=== PATIENT | male | born 1965 | race Caucasian/White ===

== ENCOUNTER 2020-04-01 10:26 | Inpatient (IN) | payer OTHER ==
[2020-04-01] VITALS (17 sets, daily range): BP systolic 102–126; BP diastolic 54–78; BMI 28.8
[~2020-04-01] VITALS: Ht 170.2 cm; Wt 80.5 kg
--- NOTE | 2020-04-01 13:00 | NUR ---
Arrived to unit at 1250 via EMS. On room air. Denies pain. bp 122/69, hr 96, RR 16, O2 SAT 96%, Temp 98.2. PIV to right forearm and left hand saline loc. Connected to ICU monitors. Dr. Méndez's nurse notified of pt arrival. Will continue to monitor.
[2020-04-01] MEDS ORDERED: ELAVIL75 MG PO (13:43)
[2020-04-01] MEDS ORDERED: IBUPROFEN800 MG PO (13:44)
[2020-04-01] MEDS ORDERED: GLUCOPHAGE850 MG PO (13:45)
[2020-04-01] MEDS ORDERED: GLIPIZIDE10 MG PO (13:46)
[2020-04-01] MEDS ORDERED: FENOFIBRATE160 MG PO (13:47)
[2020-04-01] MEDS ORDERED: BAYER CHEWABLE81 MG PO (13:48)
[2020-04-01] MEDS ORDERED: LISINOPRIL10 MG PO (13:48)
[2020-04-01] MEDS ORDERED: AMITRIPTYLINE H50 MG PO (13:49)
[2020-04-01] MEDS ORDERED: FLOMAX0.4 MG PO (13:50)
[2020-04-01 14:24] LABS: BASOPHILS 0.2 % (0-2); EOSINOPHILS 5.1 % (0-7); HEMATOCRIT 35.9 % (42.0-54.0); HEMOGLOBIN 12.1 g/dL (13.5-17.5); IMMATURE GRANULOCYTES 1.3 % (0-5); LYMPHOCYTES 26.1 % (15-50); MCH 33.6 pg (26.0-34.0); MCHC 33.7 g/dL (31.0-37.0); MCV 99.7 fL (80.0-100.0); MEAN PLATELET VOLUME 9.7 fL (7.4-10.4); MONOCYTES 5.1 % (2-11); NEUTROPHILS 62.2 % (40-80); PLATELET COUNT 168 10x3/uL (130-400); RDW 13.7 % (11.5-14.5); WBC 5.3 10x3/uL (4.8-10.8)
[2020-04-01] MEDS ORDERED: TORADOL10 MG PO (14:27)
[2020-04-01] MEDS ORDERED: LISINOPRIL5 MG PO (14:28)
[2020-04-01 14:54] LABS: APTT 29.7 SECONDS (22.8-39.4); INR 0.98 (0.85-1.17); PROTIME 12.9 SECONDS (11.6-15.0)
[2020-04-01 15:11] LABS: BILIRUBIN NEGATIVE (NEGATIVE); KETONE NEGATIVE (NEGATIVE); NITRITE NEGATIVE (NEGATIVE); UROBILINOGEN NORMAL (NORMAL)
[2020-04-01 15:13] LABS: ALBUMIN 3.4 g/dL (3.4-5.0); ANION GAP 12.3 mmol/L (8-16); BILIRUBIN - TOTAL 0.26 mg/dL (0.2-1.3); CALCIUM 8.3 mg/dL (8.5-10.1); CARBON DIOXIDE 24.5 mmol/L (21.0-32.0); CREATININE - SERUM 1.2 mg/dL (0.6-1.3); PHOSPHOROUS 2.9 mg/dL (2.5-4.9); POTASSIUM - SERUM 3.8 mmol/L (3.5-5.1); PROTEIN - SERUM 7.1 g/dL (6.4-8.2); T4 THYROXIN - FREE 0.98 ng/dL (0.76-1.46); THYROID STIMULATING HORMONE 3.37 uIU/mL (0.36-3.74); URIC ACID 5.2 mg/dL (2.6-7.2)
--- NOTE | 2020-04-01 17:20 | NUR ---
Dr. Goodson in unit. Nofitied of consult.
--- NOTE | 2020-04-01 17:45 | NUR ---
Blood glucose [address] Méndez notified. Orders received.
--- NOTE | 2020-04-01 21:00 | NUR ---
PTT 34.0, HEPARIN PROTOCOL FOLLOWED PER ORDER.
[2020-04-02] VITALS (29 sets, daily range): BP systolic 98–164; BP diastolic 47–70; Ht 170.2 cm; Wt 80.5 kg
[2020-04-02 05:57] LABS: BASOPHILS 0.4 % (0-2); EOSINOPHILS 4.5 % (0-7); HEMATOCRIT 36.5 % (42.0-54.0); IMMATURE GRANULOCYTES 1.3 % (0-5); LYMPHOCYTES 30.2 % (15-50); MCHC 32.9 g/dL (31.0-37.0); MCV 100.3 fL (80.0-100.0); MEAN PLATELET VOLUME 9.9 fL (7.4-10.4); MONOCYTES 7.3 % (2-11); NEUTROPHILS 56.3 % (40-80); PLATELET COUNT 166 10x3/uL (130-400); RBC 3.64 10x6/uL (4.20-6.10); RDW 13.6 % (11.5-14.5); WBC 5.6 10x3/uL (4.8-10.8)
[2020-04-02 06:16] LABS: ANION GAP 15.7 mmol/L (8-16); CALCIUM 8.4 mg/dL (8.5-10.1); CREATININE - SERUM 1.3 mg/dL (0.6-1.3); POTASSIUM - SERUM 3.7 mmol/L (3.5-5.1)
--- NOTE | 2020-04-02 09:38 | NUR ---
Resting comfortably. He states that he's nervous about being in restraints after surgery. He states that in the past he has gotten very agitated when placed in restraints and is afraid that he will become combative if he finds himself strapped to the bed. Sister is at bedside. She is a nurse. Explained to pt what to expect after surgery, but he is still very nervous.
--- NOTE | 2020-04-02 09:52 | NUR ---
Ultrasound staff notified of need os dopplar ultrasound ordered.
--- NOTE | 2020-04-02 11:34 | NUR ---
Resting comfortably. VSS. Denies other needs at this time.
--- NOTE | 2020-04-02 12:32 | NUR ---
Preop meds given at this time. Sister at bedside. Sister's phone number given to Christianne Ramesh.
--- NOTE | 2020-04-02 13:20 | NUR ---
Pt not in room at this time.
[2020-04-03] VITALS (87 sets, daily range): BP systolic 42–134; BP diastolic 25–88
--- NOTE | 2020-04-03 01:07 | NUR ---
PATIENT EXTUBATED PER ORDER TO 02 @4L/MIN PER NC. FAUSTINO WELL. VSS
[2020-04-03 05:26] LABS: HEMOGLOBIN 10.8 g/dL (13.5-17.5); MCH 33.1 pg (26.0-34.0); MCHC 32.7 g/dL (31.0-37.0); MCV 101.2 fL (80.0-100.0); MEAN PLATELET VOLUME 9.7 fL (7.4-10.4); RBC 3.26 10x6/uL (4.20-6.10); RDW 14.2 % (11.5-14.5); WBC 8.8 10x3/uL (4.8-10.8)
[2020-04-03 05:53] LABS: ALBUMIN 2.7 g/dL (3.4-5.0); BILIRUBIN - TOTAL 0.35 mg/dL (0.2-1.3); CALCIUM 7.4 mg/dL (8.5-10.1); CREATININE - SERUM 1.6 mg/dL (0.6-1.3)
[2020-04-03 05:58] LABS: ANION GAP 14.3 mmol/L (8-16); POTASSIUM - SERUM 4.3 mmol/L (3.5-5.1)
--- NOTE | 2020-04-03 19:00 | NUR ---
REPORT RECEIVED. RECEIVED PATIENT IN BED, AWAKE ALERT AND ORIENTED X 4. ASSESSMENT COMPLETED PER FLOW SHEET WITH NO ACUTE DISTRESS OBSERVED. MONITOR CONNECTED TO PATIENT WITH ALARMS SET. VSS. ON SHANTHI GTT TITRATED TO EFFECT. NSR ON MONITOR. MEDIASTINAL CT INTACT/SECURE/PATENT CONNECTED TO 20CM WALL SUCTION DRAINING SMALL AMOUNT OF SEROSANG FLUID INTO COLLECTION CHAMBER. GRZEGORZ DRAIN INTACT/SECURE/PATENT AND COMPRESSED WITH SMALL AMOUNT OF SEROSANG FLUID IN BULB. CALL LIGHT IN REACH AND ABLE TO UTILIZE TO MAKE NEEDS KNOWN. WILL CONTINUE CURRENT POC
--- NOTE | 2020-04-03 20:00 | NUR ---
0745-NOTED FEDE FLAT WAVE FORM-DRESSING TAKEN DOWN-SUTURE NOT SECURE-CATHETER NOT IN PLACE-REMOVED PER PROTOCOL-NO DRAINAGE OR HEMATOMA NOTE-PRESSURE DRG APPLIED 0830-PT VOMITED 250ML-POSSIBLY WITH FORCEFUL COUGH--DR MCNEAL AT BEDSIDE-CURRENT STATUS REPORT -NO ADDITIONAL ORDERS AT THIS TIME 0945-REGLAN GIVEN ORDERED 1200-NOTIFIED DR MCNEAL OF UOP< THEN ORDERED PARAMETER-ORDER RECIEVED AND PLASMA FLUID BOLUS OF 500ML STARTED OVER 1 HR 1330-FOUND PT ON SIDE-STRESSED WILL CAUSE STRONGER PAIN -DUE TO STERNAL BONE FORCED OUT OF POSITION-AND NOT GOOD FOR RESIDENTIAL RESULTS-PT REPOSITIONED SELF TO BACK- 1450-FOUND PT ON SIDE WITH REPEAT INSTRUCTION-STATED HE FORGOT-ASKED IF DOESN'T CAUSE INCREASED PAIN -PT STATED HELPS RELIEVE PAIN-EASILY RETURNED TO SUPINE 1630-PT POORLY USING IS-INCREASED RHONCHI AUDIBLE -ASSISTED TO BEDSIDE CHAIR-ABLE TO STAND WELL- INCENTIVE IMPROVED TO 750ML-PRODUCTIVE COUGH -NEPHEW AT BEDSIDE-CONVERSING EASILY WITH SAME 1700-DR MCNEAL NOTIFIED OF CURRENT STATUS-UOP RETURNED TO BELOW PARAMETER-CURRENT VS AND NEOSYNEPHRINE AT 0.9 -ABG ORDERED AND DRAWN 1715-ABG RESULTS GIVEN TO DR MCNEAL-ORDER FOR CACL 2G OVER 1 HR IVPB-PT ASSISTED TO BED- 1800-PRODUCTIVE COUGH-
[2020-04-04] VITALS (35 sets, daily range): BP systolic 93–132; BP diastolic 38–87
[2020-04-04 06:01] LABS: HEMATOCRIT 26.5 % (42.0-54.0); HEMOGLOBIN 8.5 g/dL (13.5-17.5); MCH 33.1 pg (26.0-34.0); MCHC 32.1 g/dL (31.0-37.0); MCV 103.1 fL (80.0-100.0); RBC 2.57 10x6/uL (4.20-6.10); RDW 14.5 % (11.5-14.5); WBC 6.9 10x3/uL (4.8-10.8)
[2020-04-04 06:09] LABS: ALBUMIN 2.7 g/dL (3.4-5.0); ANION GAP 18.1 mmol/L (8-16); BILIRUBIN - TOTAL 1.03 mg/dL (0.2-1.3); CALCIUM 8.5 mg/dL (8.5-10.1); CARBON DIOXIDE 21.8 mmol/L (21.0-32.0); POTASSIUM - SERUM 4.9 mmol/L (3.5-5.1); PROTEIN - SERUM 6.3 g/dL (6.4-8.2)
--- NOTE | 2020-04-04 18:17 | NUR ---
0830-DR MCNEAL IN UNIT REVIEWING PT CHART 899-PT ASSISTED TO BEDSIDE CHAIR-WITH AID OF RN AND PHYSICAL THERAPY. STRONGLY ENCOURAGED [id number] ML-STRONG PRODUCTIVE COUGH 899-SISTER AT BEDSIDE -INFORMED STAFF PT HAS BEEN VOMITING AT HOME FOR APPROX 3 MTHS-PT DID NOT INFORM MEDICAL TEAM PRIOR-STATED FELT NOT IMPORTANT-ABD DISTENDED FIRM NO BOWEL SOUNDS AUDIBLE 929-DR MCNEAL AT BEDSIDE-CHEST TUBES REMOVED BY SAME PER PROTOCOL-R IJ SALINE LOCKED-R JPRATT REMOVED BY CVRN -TOLERATED WELL-DR AGUERO AT BEDSIDE INFORMED OF FREQUENT VOMITING AND DISTENDED ABD NO BOWEL SOUNDS AUDIBLE-- 1000-XRAY FILM REVIEWED-BY DR MCNEAL AND ORDERS RECIEVED 1300-PT STATED VOMITING AND NAUSEA PASSED-ABD REMAINS DISTENDED-NO AUDIBLE BOWEL SOUNDS AT THIS TIME-REQUESTED ASSISTANCE TO BEDSIDE CHAIR 1500-OXIMYZER INCREASED TO 15L PT AMBULATED WITH PHYSICAL THERAPY-ASSISTED TO BED FOLLOWING-REQUESTED CATHETER OUT-SAME D/C'D PER PROTOCOL
--- NOTE | 2020-04-04 18:31 | NUR ---
1730-PT CALLED NURSE INTO RM-NOTED NOSE BLEED -OXIMYZER ON HUMIDIFICATION-PT STATED TUBING SCRATCHED HIS NOSE-ICE APPLIED 1800-PT CALLED AND REQUESTED ASSISTANCE TO BED-SAME DONE-
--- NOTE | 2020-04-04 20:05 | NUR ---
184-NNOTED SINUS ARRYTHMIA-78-/BLOCKED SINUS HFOLL-[id number] MONITOR STRIPS-ENTERED ROOM-RESP RATE 8-10-O2 UNDER [id number] CYANOSIS-STRONGLY ALERTED PT-RESPONDED SLUGGISHLY-O2 REPLACED-PT STATED DIDN'T KNOW O2 OFF--POOR RESP EFFORT-BAGGED 100%-SAT INCREASED TO 100%-NARCAN 0.1 IVP GIVEN AND FLUSHED-HEART RATE RETURNED OT N/S 99 WITH BUNDLE BRANCH BLOCK-CONTINUED BAGGING 100%-WITH NO STRUGGLE FROM PT-1847-PT ALERT AND STRUGGLED AGAINST BAGGING-OXIMYZER 15L-PT CRYING OUT IN PAIN-SR 99 ON MONITOR -STAT ABG ORDERED-DR MCNEAL NOTIFIED-ABG RESULTS SENT-ORDERS RECIEVED AND NOTED-BICARB 1AMP IVP GIVEN-DR VIDALES PAGED FOR STAT CONSULT-PT PLACED ON NON REBREATHER BY RT 1849-DR VIDALES RETURNED CALL-STATUS REPORT GIVEN-ORDERS RECIEVED -STAT PORT CXR-RT NOTIFIED OF 09/02 100%BIPAP- 1914-CXR COMPLETED-DR VIDALES AT BEDSIDE O2 OFF'-POOR RESP EFFORT-BAGGED 100%
[2020-04-05 04:00] VITALS: BP 130/87
[2020-04-05 05:36] LABS: HEMATOCRIT 26.1 % (42.0-54.0); HEMOGLOBIN 8.1 g/dL (13.5-17.5); MCH 32.8 pg (26.0-34.0); MEAN PLATELET VOLUME 10.1 fL (7.4-10.4); RBC 2.47 10x6/uL (4.20-6.10); RDW 14.5 % (11.5-14.5); WBC 6.9 10x3/uL (4.8-10.8)
[2020-04-05 05:59] LABS: ALBUMIN 2.7 g/dL (3.4-5.0); ANION GAP 19.7 mmol/L (8-16); BILIRUBIN - TOTAL 0.7 mg/dL (0.2-1.3); CALCIUM 8.1 mg/dL (8.5-10.1); CARBON DIOXIDE 22.8 mmol/L (21.0-32.0); CREATININE - SERUM 2.1 mg/dL (0.6-1.3); POTASSIUM - SERUM 5.5 mmol/L (3.5-5.1); PROTEIN - SERUM 6.9 g/dL (6.4-8.2)
[2020-04-05 06:08] LABS: MCV 105.7 fL (80.0-100.0)
--- NOTE | 2020-04-05 08:42 | NUR ---
Nutrition Follow-up: POD 3 CABG. Pt on bipap at time of visit this AM. Noted 0% intake over the weekend. Nursing reports pt desats when off of bipap. Diet: Clear Liquid -> Diabetic PO intake: 0% x 6 meals Wt: 196# (04/05) Labs noted: Na 132, K+ 5.5, Glu 200, Ca 8.1, Alb 2.7 Meds noted: Solumedrol, Reglan, Protonix, Senokot, Colace -If poor PO intake continues, rec consider nutrition support. -Monitor wt. -RD following.
--- NOTE | 2020-04-05 10:40 | NUR ---
patient ambulated on 15 l high flow with physical therapy
[2020-04-05 11:00] VITALS: BP 121/52
--- NOTE | 2020-04-05 12:13 | NUR ---
INSTRUCTED PATIENT TO COUGH AND PUT SPUTUM IN SPECIMEN CUP.
[2020-04-05 19:00] VITALS: BP 125/58
[2020-04-05 20:00] VITALS: BP 110/38
[2020-04-05 21:00] VITALS: BP 120/53
[2020-04-05 22:00] VITALS: BP 102/36
[2020-04-06] VITALS (25 sets, daily range): BP systolic 103–143; BP diastolic 37–85
[2020-04-06 06:01] LABS: HEMATOCRIT 25.2 % (42.0-54.0); HEMOGLOBIN 8.1 g/dL (13.5-17.5); MCH 32.9 pg (26.0-34.0); MCHC 32.1 g/dL (31.0-37.0); MEAN PLATELET VOLUME 10.3 fL (7.4-10.4); RBC 2.46 10x6/uL (4.20-6.10); RDW 14.3 % (11.5-14.5)
[2020-04-06 06:02] LABS: MCV 102.4 fL (80.0-100.0); WBC 9.2 10x3/uL (4.8-10.8)
[2020-04-06 06:21] LABS: ALBUMIN 2.6 g/dL (3.4-5.0); BILIRUBIN - TOTAL 0.97 mg/dL (0.2-1.3); CALCIUM 7.8 mg/dL (8.5-10.1); CARBON DIOXIDE 28.4 mmol/L (21.0-32.0); PROTEIN - SERUM 6.8 g/dL (6.4-8.2)
[2020-04-06 06:44] LABS: CREATININE - SERUM 1.5 mg/dL (0.6-1.3); POTASSIUM - SERUM 4.4 mmol/L (3.5-5.1)
--- NOTE | 2020-04-06 08:54 | OP ---
PATIENT NAME: ORLY CONWAY MEDICAL RECORD: [id number] :65 LOCATION:D.CVI D.CV05 ADMISSION DATE:04/01/20 SURGEON: EDILMA BEGUM MD DATE OF OPERATION: 04/02/2020 SURGEON: Edilma Begum MD PROCEDURE PERFORMED: 1. Coronary artery bypass graft times 3 (left internal mammary artery to LAD, reverse saphenous vein graft from aorta to first ramus intermedius and aorta to posterior descending artery). 2. Endoscopic saphenous vein harvest. PREOPERATIVE DIAGNOSES: Coronary artery disease with myocardial infarction and ventricular tachycardia. POSTOPERATIVE DIAGNOSIS: Coronary artery disease with myocardial infarction and ventricular tachycardia. ANESTHESIA: General endotracheal anesthesia. ESTIMATED BLOOD LOSS: Total cardiopulmonary bypass with Cell Saver retransfusion. COMPLICATIONS: None. SPECIMENS: None. CONDITION: Stable. DISPOSITION: CV ICU. OPERATIVE FINDINGS: 1. Transesophageal echocardiography revealed good global contractility with trace mitral regurgitation and trace aortic insufficiency, unchanged after revascularization. 2. Bilateral hyperexpanded and hyperpigmented longus consistent with long history of smoking. 3. LAD 2.5 mm. 4. Ramus intermedius 2.0 mm. 5. Obtuse marginal seen to fill by collaterals was very small and not grafted. 6. Posterior descending artery 1.5 mm with severe disease plaque in the proximal vessel as well as distal. OPERATIVE INDICATION: Myocardial infarction, ventricular tachycardia, multivessel coronary artery disease, diabetes, smoking, and hyperlipidemia family history. DESCRIPTION OF PROCEDURE: The patient was brought to the operating suite. General anesthesia was obtained, the patient was prepped and draped. Greater saphenous vein harvested endoscopically of the right lower extremity. Side branch divided with electrocautery. The vessel was ligated distally proximally. The proximal end required a cut down, ligated and oversewn. Drain was placed later. Side branches on the vein were tied and thin sites were oversewn. Leg was later closed in 2 layers and Dermabond was placed. OPERATIVE REPORT [id number] ORLY CONWAY Median sternotomy incision was made. Subcutaneous tissue divided with electrocautery. The sternum was divided with a saw. The left hemisternum was elevated. The left pleural cavity was entered. Left internal mammary artery and vein was taken down as a pedicle graft. Sternal retractor was placed. Pericardium was opened. Heparin was given. Air was cannulated. Dual stage venous cannula was inserted. The internal mammary was clipped distally and made ready for anastomosis. Activated clotting time was appropriately elevated. The patient was placed on cardiopulmonary bypass. Sites for distal anastomoses were selected. Antegrade cardioplegic cannula was inserted. The patient was cooled. Crossclamp was placed. Cardioplegia given antegrade and this repeated at 15 minute intervals including down the completed vein grafts. Distal anastomosis was performed in standard technique. Proximal anastomosis with single cross-clamp technique. Aortic root de-aired. Proximal anastomosis tied down. Vein graft flow restored. Proximal and distal anastomotic sites inspected for bleeding. A single 6-0 at the proximal site. The patient defibrillated once. Amiodarone given. Patient with a fully rewarmed, stable, weaned from cardiopulmonary bypass. The patient was decannulated. The cannula sites were oversewn. Protamine was given. Thorough irrigation was undertaken. Graft lay appropriately. Good Doppler signal in the internal mammary. Atrial and ventricular pacing wires were placed. After hemostasis was assured, pericardial fat was loosely reapproximated with drain to the mediastinum, one with the tip in the right pleural cavity, one in the left pleural cavity. Left chest was evacuated and irrigated. The internal mammary harvest site inspected for bleeding. Sternum closed with wires. Fascia was closed. Subcutaneous tissues were closed. Skin was closed. Dermabond was placed. The needle and sponge counts reported as correct. The patient was taken to ICU in stable condition. TRANSINT:[id number] Voice Confirmation ID: [id number] DOCUMENT ID: [id number] EDILMA BEGUM MD at 0854 CC: TALISHA AVALOS MD [id number] DICTATION DATE: 04/02/201899 JAVA ARCHITECT: 04/03/20 0025 ADM IN [facility] [address] [place] [address]
[2020-04-06 12:50] LABS: BASOPHILS 0.2 % (0-2); EOSINOPHILS 0 % (0-7); HEMATOCRIT 26.4 % (42.0-54.0); HEMOGLOBIN 8.6 g/dL (13.5-17.5); LYMPHOCYTES 5.8 % (15-50); MCH 33.6 pg (26.0-34.0); MCHC 32.6 g/dL (31.0-37.0); MCV 103.1 fL (80.0-100.0); MEAN PLATELET VOLUME 10.3 fL (7.4-10.4); MONOCYTES 7.1 % (2-11); NEUTROPHILS 85.9 % (40-80); PLATELET COUNT 209 10x3/uL (130-400); RBC 2.56 10x6/uL (4.20-6.10); RDW 14.6 % (11.5-14.5)
--- NOTE | 2020-04-06 13:14 | NUR ---
RECEIVED REPORT AND ASSUMED CARE OF PATIENT.
[2020-04-06 13:23] LABS: ALBUMIN 2.7 g/dL (3.4-5.0); BILIRUBIN - TOTAL 0.87 mg/dL (0.2-1.3); CALCIUM 7.9 mg/dL (8.5-10.1); CARBON DIOXIDE 26.6 mmol/L (21.0-32.0); CREATININE - SERUM 1.4 mg/dL (0.6-1.3); POTASSIUM - SERUM 4.6 mmol/L (3.5-5.1); PROTEIN - SERUM 6.3 g/dL (6.4-8.2)
[2020-04-06 13:38] LABS: WBC 12.3 10x3/uL (4.8-10.8)
--- NOTE | 2020-04-06 14:05 | NUR ---
DECREASED 02 TO 6 LPM, SPO2 100%.
--- NOTE | 2020-04-06 14:22 | NUR ---
PATIENT ASSISTED TO BEDSIDE COMMODE, NO BM, VOIDS 100 ML OF URINE.
--- NOTE | 2020-04-06 14:27 | NUR ---
O2 DECREASED TO 2 LPM, SPO2 100%.
--- NOTE | 2020-04-06 15:12 | NUR ---
REASSESSMENT COMPLETRED. VSS. NO NEEDS AT THIS TIME.
--- NOTE | 2020-04-06 15:46 | NUR ---
PATIENT PULLED NGT OUT.
--- NOTE | 2020-04-06 16:00 | NUR ---
DR. JETER AT ROOM UPDATED AND EXAMINES PATIENT.
--- NOTE | 2020-04-06 16:02 | NUR ---
NGT PLACED TO RIGHT NARE 14 FR, PLACEMENT VERIFIED BY ASCULATION AND ASPIRATION PLACED TO INTERMETTENT SUCTION. CVL TO RIGHT IJ NOTED TO BE LEAKING AROUND INSERTION SITE, PATIENTS GOWN SOAKED, MARLENI RN STATED THAT SHE HAD REDRESSED THE SITE THIS AM BUT WASNT SURE WHERE IT WAS LEAKING FROM. IV INFUSION STOPPED AND NOTIFIED.
--- NOTE | 2020-04-06 16:20 | NUR ---
DISTAL PORT WITH POSITIVE BLOOD RETURN AND EASILY FLUSHES, PROXIMAL PORT WITHOUT BLOOD RETURN AND FLUSHES EASILY, DRESSING CHANGED AND IV FLUID RESTARTED USING DISTAL PORT. WILL CONTINUE TO MONITOR NO SIGNS OF LEAKING PRESENTLY.
--- NOTE | 2020-04-06 16:47 | NUR ---
AFTER CHANGING DRESSING AND CONNECTION SITE NO LEAK NOTED. WILL CONTINUE TO MONITOR.
[2020-04-07] VITALS (25 sets, daily range): BP systolic 83–149; BP diastolic 39–74
[2020-04-07 05:27] LABS: ALBUMIN 2.5 g/dL (3.4-5.0); ANION GAP 14.3 mmol/L (8-16); BILIRUBIN - TOTAL 0.83 mg/dL (0.2-1.3); CALCIUM 8.2 mg/dL (8.5-10.1); CARBON DIOXIDE 27.5 mmol/L (21.0-32.0); CREATININE - SERUM 1.1 mg/dL (0.6-1.3); POTASSIUM - SERUM 4.8 mmol/L (3.5-5.1); PROTEIN - SERUM 6.7 g/dL (6.4-8.2)
[2020-04-07 05:46] LABS: APTT 27.4 SECONDS (22.8-39.4); INR 1.25 (0.85-1.17); PROTIME 15.6 SECONDS (11.6-15.0)
--- NOTE | 2020-04-07 07:30 | NUR ---
RECEIVED REPORT FROM OFF-GOING NURSE. ALL LINE AND TUBES INTACT AT THIS TIME. PATIENT QUIET WITH EYES CLOSED.
[2020-04-07 07:52] LABS: HEMATOCRIT 26.8 % (42.0-54.0); HEMOGLOBIN 8.5 g/dL (13.5-17.5); MCH 32.7 pg (26.0-34.0); MCHC 31.7 g/dL (31.0-37.0); MCV 103.1 fL (80.0-100.0); MEAN PLATELET VOLUME 10.7 fL (7.4-10.4); RBC 2.6 10x6/uL (4.20-6.10); RDW 14.7 % (11.5-14.5); WBC 10.1 10x3/uL (4.8-10.8)
--- NOTE | 2020-04-07 08:00 | NUR ---
SHIFT ASSESSMENT COMPLETED. PATIENT AROUSABLE TO VOICE, SPEECH SLURRED. CAN GIVE FIRST NAME BUT DOES NOT RESPOND TO OTHER QUESTIONS.
--- NOTE | 2020-04-07 08:20 | NUR ---
PATIENT CLIMBING OUT OF BED AT FOOT. INCONTINENT OF URINE IN BED AND ON FLOOR. COMBATIVE AND RESISTENT TO PHYSICAL REDIRECTION. LINENS CHANGED AND REPOSITIONED IN BED. BED ALARM INITIATED.
--- NOTE | 2020-04-07 08:22 | CN ---
PATIENT NAME:ORLY CONWAY MEDICAL RECORD: [id number] : 65 LOCATION:RALPHID.CV05 ADMIT DATE: 04/01/20 ACCOUNT: [id number] CONSULTING PHYSICIAN: FENG JETER MD REFERRING PHYSICIAN: EDILMA BEUGM MD DATE OF CONSULTATION: 04/06/2020 IDENTIFYING DATA: The patient is 55-year-old and he is admitted to the hospital secondary to coronary artery disease. CHIEF COMPLAINT: None. HISTORY OF PRESENT ILLNESS: The patient recently had a myocardial infarction. He was transferred here from [facility] for the purposes of having bypass grafting and indeed he did have multivessel disease and underwent surgery 4 days ago. Currently, he has some abnormal labs, macrocytic anemia and elevated white count and elevated BUN and creatinine and a low sodium. The patient himself is alert, oriented, and cooperative. He has no mental status abnormalities except some slowed cognitive processing and certainly no thoughts of harming himself or others. He strongly denies a history of alcohol and drug abuse. He denies any psychiatric issues in the past. 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 ASSESSMENT: Adjustment disorder with mixed emotional features. PLAN: I see no behavior problems and certainly no evidence of any symptoms that would represent an acute danger to others or himself. I see no need for psychiatric followup. It is hard to assess what his mental status change might be not having the opportunity to examine him before surgery. I do think he is processing slow and taking longer to recall than would be expected of someone of normal intelligence, but I do not know what his baseline level of functioning was intellectually. Again, there is no evidence of dangerousness. I he does have some insomnia or anxiety, I think it is appropriate to treat with a low dose of benzodiazepine on short-term basis. I suspect some of his anxiety is not only related to his social situation and sudden change in health, but also to the fact that he is not able to smoke. Hopefully, he will quit smoking; however, a Habitrol patch may help calm him some, but I am not sure about how that would influence his cardiac status. TRANSINT:[id number] Voice Confirmation ID: [id number] DOCUMENT ID: [id number] FENG JETER MD at 0822 CC: [id number] DICTATION DATE: 04/06/20 1641 SPINNING DOFFER: 04/07/[address] [facility] [address] [place] [id number]
--- NOTE | 2020-04-07 09:11 | TEE ---
PATIENT:ORLY CONWAY MEDICAL RECORD: [id number] LOCATION:[place] [address] AGE OF PATIENT: 55 ADMISSION DATE: 04/01/20 SEX: M REFERRING PHYSICIAN: INTERPRETING PHYSICIAN: CARROL DIMAS MD TRANSESOPHAGEAL ECHOCARDIOGRAM Date: 04/06/20 ODILON CHARGE Y INDICATIONS: CABG PREMEDICATIONS: PATIENT'S RESPONSE PROCEDURE DOPPLER MEASUREMENTS: LVIT LA PA 93 RA LVOT 95 RVOT 54 Asc. Ao 172 AV Gradient Peak 11.8 AV Mean 5.0 AV Area 0.8 MV Gradient Peak 9.4 MV Mean 4.0 MV Area INTERPRETATION: Doppler: 2-D: COLOR FLOW DOPPLER NORMAL SALINE STUDY: MISCELLANOUS: DIAGNOSIS: PLAN: Internet Marketing Executive:Johnathon Conway Computer Networker: Kendall FALCON COMMENTS: DATE OF SERVICE: 04/06/2020 Preoperative shows normal LV wall motion and normal wall thickening. EF greater than 55%. Aortic valve is tricuspid with good valve excursion. Trace to mild AI. Mitral valve appears normal with good excursion. Mild MR. Postoperatively, good wall thickening of all segments and good wall motion, EF greater than 50%. Aortic valve with good valve excursion. Trace to mild AI. Mitral valve appears normal. Trace to mild MR. TRANSESOPHAGEAL ECHOCARDIOGRAM REPORT [id number] ORLY CONWAY TRANSINT:[id number] Voice Confirmation ID: [id number] DOCUMENT ID: [id number] at 0911 CC: [id number] DICTATION DATE: 04/06/20 1201 BUSINESS ECONOMIST: 04/06/20 1517 ADM IN [place] [id number] [place] [address]
--- NOTE | 2020-04-07 09:40 | NUR ---
PO MEDS GIVEN WITH SIPS OF WATER. COUGHING VIOLENTLY AFTER SWALLOWING. IMPROVED WITH CHIN TUCK.
--- NOTE | 2020-04-07 09:51 | NUR ---
Nutrition Follow-up: Pt NPO with NGT in place. Noted abd XR shows ileus vs constipation. Per nursing, pt coughing violently after PO meds with sips of H2O this AM. Wt: 179.6# (04/07) Last BM: 04/01 per chart Labs noted: Glu 214, Ca 8.2, Alb 2.5 Meds noted: Humulin D5 1/2NS KCl @ 100, Solumedrol, Protonix, Senokot, Colace -Pt has been NPO/clear liquid/poor PO intake since surgery; rec consider nutrition support as medically feasible. -Monitor wt. -RD following.
--- NOTE | 2020-04-07 10:00 | NUR ---
ATTEMPTING TO CLIMB OUT OF BED. SAYING "I NEED TO PEE". INCONTINENT ON SHEETS AND FLOOR. 50CC CAPTURED IN URINAL. ASSISTED TO BEDSIDE CHAIR WITH CHAIR ALARM ON. LINENS CHANGED.
--- NOTE | 2020-04-07 11:00 | NUR ---
ASSISTED BACK TO BED. PICC NURSE HERE TO INSERT CVL. CONTACT NUMBER IN CHART CALLED TO OBTAIN CONSENT. MESSAGE LEFT.
--- NOTE | 2020-04-07 12:00 | NUR ---
PICC LINE INSERTED TO RIGHT UPPER ARM BY VASCULAR NURSE. PATIENT MORE ORIENTED BUT IS STILL AGITATED AT TIMES. INCONTINENT OF URINE BUT KNOWS WHEN HE NEEDS TO GO.
--- NOTE | 2020-04-07 12:30 | NUR ---
MALE EXTERNAL CATHETER APPLIED. EXPLAINED TO PATIENT. PATEINT PULLED OUT NGT.
--- NOTE | 2020-04-07 15:00 | NUR ---
18F NG TUBE REPLACED TO RIGHT NARE. SECURED WITH DEVICE. PLACEMENT CONFIRMED WITH AUSCULTATION. RIGHT IJ CVL D/C'D. OCCLUSIVE DRESSING WITH BETADINE, 4X4 AND TEGADERM PLACED.
--- NOTE | 2020-04-07 16:20 | NUR ---
BECOMING MORE RESTLESS, PULLING AT LINES. ATIVAN 1MG IVP GIVEN.
--- NOTE | 2020-04-07 17:00 | NUR ---
RELAXED AND SLEEPING AT THIS TIME.
[2020-04-08] VITALS (24 sets, daily range): BP systolic 98–136; BP diastolic 46–77
[2020-04-08 05:55] LABS: HEMATOCRIT 26.1 % (42.0-54.0); HEMOGLOBIN 8.2 g/dL (13.5-17.5); MCH 32.5 pg (26.0-34.0); MCHC 31.4 g/dL (31.0-37.0); MCV 103.6 fL (80.0-100.0); MEAN PLATELET VOLUME 10.7 fL (7.4-10.4); RBC 2.52 10x6/uL (4.20-6.10); RDW 14.9 % (11.5-14.5); WBC 9.4 10x3/uL (4.8-10.8)
[2020-04-08 06:35] LABS: ALBUMIN 2.5 g/dL (3.4-5.0); ANION GAP 13.1 mmol/L (8-16); BILIRUBIN - TOTAL 0.65 mg/dL (0.2-1.3); CREATININE - SERUM 1.1 mg/dL (0.6-1.3); POTASSIUM - SERUM 4.1 mmol/L (3.5-5.1); PROTEIN - SERUM 6.5 g/dL (6.4-8.2)
--- NOTE | 2020-04-08 07:00 | NUR ---
RECEIVED BEDSIDE REPORT ON PATIENT AND ASSUMED CARE. PATIENT ALERT BUT WITH INTERMITTENT CONFUSION NOTED, STATES IN BENTION, REORIENTED TO LOCATION, VSS. BBS - CLEAR AND EQUAL, SPO2 - 96% ON RA. CM - NSR RATE OF 76. CONDOM CATH IN PLACE WITH 150 ML OF CLEAR YELLOW UOP NOTED. PATIENT ASSISTED IN REPOSITIONING IN BED. IV 20 GA NSL TO LEFT FA NOTED AND PICC TO RIGHT UPPER ARM WITH D5W WITH 20 MEQ KCL INFUSING AT 50 ML/HR. HEAD TO TOE ASSESSMETN COMPLETED.
--- NOTE | 2020-04-08 08:50 | NUR ---
PATIENT GIVEN COMPLETE BATH AND LINEN CHANGE.
--- NOTE | 2020-04-08 09:00 | NUR ---
PATIENT RESTING QUIETLY, VSS. NO NEEDS AT THIS TIME. MORNING MEDS PER MAR. NO DIFFICULTY SWALLOWING PILLS OR SIPS OF WATER.
--- NOTE | 2020-04-08 11:00 | NUR ---
REASSESSMENT COMPLETED. VSS. NO NEEDS AT THIS TIME.
--- NOTE | 2020-04-08 12:30 | NUR ---
PATIENT PULLED CONDOM CATH OFF AND INCONTINENT URINE IN BED. LINENS CHANGED AND BATH GIVEN. REPOSITIONED IN BED. VSS. NO NEEDS AT THIS TIME.
--- NOTE | 2020-04-08 13:29 | NUR ---
PATIENT VOIDED 150 ML URINE TO URINAL.
--- NOTE | 2020-04-08 15:02 | NUR ---
REASSESSMENT COMPLETED. VSS. NO NEEDS AT THIS TIME.
--- NOTE | 2020-04-08 15:36 | NUR ---
PATIENT VOIDS 150 ML OF URINE TO URINAL. NO NEEDS AT THIS TIME. VSS.
--- NOTE | 2020-04-08 16:20 | NUR ---
PATIENT GIVEN MEDS PER MAR. NO NEEDS AT THIS TIME. VSS.
--- NOTE | 2020-04-08 16:41 | NUR ---
PATIENT VOIDS 180 ML OF URINE TO URINAL. NO NEEDS AT THIS TIME. VSS.
--- NOTE | 2020-04-08 17:50 | NUR ---
PATIENT VOIDS 150 ML OF URINE OUTPUT TO URINAL. WANTS SANAZ HOSE OFF AND AGREES TO SCDS TO BE PLACED ON. VSS.
[2020-04-09] VITALS (22 sets, daily range): BP systolic 100–132; BP diastolic 37–84
[2020-04-09 05:58] LABS: HEMATOCRIT 25.6 % (42.0-54.0); HEMOGLOBIN 8.1 g/dL (13.5-17.5); MCH 33.1 pg (26.0-34.0); MCHC 31.6 g/dL (31.0-37.0); MCV 104.5 fL (80.0-100.0); MEAN PLATELET VOLUME 10.5 fL (7.4-10.4); RBC 2.45 10x6/uL (4.20-6.10); RDW 15.4 % (11.5-14.5); WBC 10.8 10x3/uL (4.8-10.8)
[2020-04-09 06:09] LABS: ALBUMIN 2.5 g/dL (3.4-5.0); ANION GAP 12.3 mmol/L (8-16); BILIRUBIN - TOTAL 0.65 mg/dL (0.2-1.3); CALCIUM 7.5 mg/dL (8.5-10.1); CARBON DIOXIDE 24.7 mmol/L (21.0-32.0); CREATININE - SERUM 1.2 mg/dL (0.6-1.3); PROTEIN - SERUM 6.3 g/dL (6.4-8.2)
--- NOTE | 2020-04-09 07:00 | NUR ---
BEDSIDE REPORT RECEIVED FROM OFF-GOING NURSE. PATIENT IS ALERT, EYES CLOSED. RESPONDING APPROPRIATELY TO QUESTIONS. ORIENTED X 3.
--- NOTE | 2020-04-09 08:00 | NUR ---
ASSISTED PATIENT UP TO CHAIR. PATIENT IS ARGUMENTATIVE. WANTS TO STAY IN BED. INSTRUCTED ON ACTIVITY ORDER BY PHYSICIAN. COAXED TO CHAIR WITH FEET UP. DOES NOT WANT TO WATCH TV AND THROWS CALL LIGHT BACK ON BED.
--- NOTE | 2020-04-09 08:40 | NUR ---
DR. BEGUM HERE.
[2020-04-10] VITALS (24 sets, daily range): BP systolic 98–144; BP diastolic 32–74
[2020-04-10 05:48] LABS: HEMOGLOBIN 9.3 g/dL (13.5-17.5); MCH 32.9 pg (26.0-34.0); MEAN PLATELET VOLUME 10.5 fL (7.4-10.4); RBC 2.83 10x6/uL (4.20-6.10); RDW 16.1 % (11.5-14.5); WBC 11.2 10x3/uL (4.8-10.8)
[2020-04-10 06:11] LABS: ALBUMIN 2.7 g/dL (3.4-5.0); ALKALINE PHOSPHATASE 65 U/L (30-120); ALT (SGPT) 221 U/L (10-68); BILIRUBIN - TOTAL 0.76 mg/dL (0.2-1.3); CALC OSMOLALITY 278 mosm/kg (275-300); CALCIUM 7.8 mg/dL (8.5-10.1); CARBON DIOXIDE 23.6 mmol/L (21.0-32.0); CHLORIDE - SERUM 104 mmol/L (98-107); CREATININE - SERUM 0.9 mg/dL (0.6-1.3); POTASSIUM - SERUM 4.3 mmol/L (3.5-5.1); PROTEIN - SERUM 6.3 g/dL (6.4-8.2); SODIUM 137 mmol/L (136-145); UREA NITROGEN 25 mg/dL (7-18); eGFR NON AFRICAN AMERICAN > 90 mL/min (90-120)
[2020-04-10 06:13] LABS: GLUCOSE 113 mg/dL (74-106)
--- NOTE | 2020-04-10 08:00 | NUR ---
PT ATE BREKFAST AND WAS ARGUMENTATIVE ABOUT MEDICATION AND BREATHING EXCERSISES. I WAS ABLE TO CONVINCE HIM TO DO HIS IS. PT PULLS ABOUT 1400 ON HIS IS. PT REQUESTED TO GO BACK TO BED. I EXPLAINED THAT PART OF HIS THERAPY WAS TO SIT OOB AND AMBULATE IF ABLE. MADE A DEAL WITH THE PT THAT HE IS TO TAKE A NAP FOR 1 HOUR BEFORE PHYSICAL THERAPY. PT LAYED IN BED AND STARTED TO LIE ON HIS SIDE. EXPALINED TO THE PATIENT THAT DR BEGUM WANTS HIM TO SLEEP FLAT ON HIS BACK. PT LAYED ON HIS BACK BUT WAS ARGUMENTATIVE ABOUT IT. VSS. WILL CONT POC.
--- NOTE | 2020-04-10 09:05 | NUR ---
PHYSICAL THEARPY AT THE PTS BEDSIDE. PT WAS NOTED TO BE SLEEPING ON HIS SIDE. EDUCATED ONCE AGAIN THAT THE PATIENT NEEDS TO SLEEP ON HIS BACK. PHYSICAL THERAPY AMBULATED THE PATIENT. NORMAL STEADY GAIT NOTED. PT AMBULATED ABOUT 500 FEET. PT BACK OOB IN HIS BEDSIDE CHAIR. CALL LIGHT IN REACH. WILL CONT POC.
--- NOTE | 2020-04-10 11:08 | NUR ---
DR BEGUM AT THE PTS BEDSIDE.
[2020-04-11] VITALS (10 sets, daily range): BP systolic 100–123; BP diastolic 31–62
[2020-04-11 05:27] LABS: HEMATOCRIT 30.7 % (42.0-54.0); HEMOGLOBIN 9.5 g/dL (13.5-17.5); MCH 33.3 pg (26.0-34.0); MCHC 30.9 g/dL (31.0-37.0); MCV 107.7 fL (80.0-100.0); MEAN PLATELET VOLUME 10.1 fL (7.4-10.4); RBC 2.85 10x6/uL (4.20-6.10); RDW 17.1 % (11.5-14.5); WBC 9.6 10x3/uL (4.8-10.8)
[2020-04-11 05:41] LABS: ALBUMIN 2.7 g/dL (3.4-5.0); ANION GAP 11.2 mmol/L (8-16); BILIRUBIN - TOTAL 0.68 mg/dL (0.2-1.3); CALCIUM 7.7 mg/dL (8.5-10.1); CARBON DIOXIDE 23.5 mmol/L (21.0-32.0); CREATININE - SERUM 1.1 mg/dL (0.6-1.3); POTASSIUM - SERUM 3.7 mmol/L (3.5-5.1); PROTEIN - SERUM 6.1 g/dL (6.4-8.2)
[2020-04-12 03:00] VITALS: BP 116/50
[2020-04-12 06:22] LABS: HEMATOCRIT 34.7 % (42.0-54.0); HEMOGLOBIN 10.7 g/dL (13.5-17.5); MCH 32.6 pg (26.0-34.0); MCHC 30.8 g/dL (31.0-37.0); MCV 105.8 fL (80.0-100.0); MEAN PLATELET VOLUME 10.4 fL (7.4-10.4); RBC 3.28 10x6/uL (4.20-6.10); RDW 16.4 % (11.5-14.5); WBC 9.1 10x3/uL (4.8-10.8)
[2020-04-12 06:36] LABS: ALBUMIN 2.7 g/dL (3.4-5.0); ANION GAP 12.2 mmol/L (8-16); BILIRUBIN - TOTAL 0.66 mg/dL (0.2-1.3); CALCIUM 7.8 mg/dL (8.5-10.1); CARBON DIOXIDE 22.8 mmol/L (21.0-32.0); CREATININE - SERUM 1.1 mg/dL (0.6-1.3); PROTEIN - SERUM 6.3 g/dL (6.4-8.2)
[2020-04-12 07:34] VITALS: BP 99/57
[2020-04-12] MEDS ORDERED: AMIODARONE HCL200 MG PO (08:47)
[2020-04-12] MEDS ORDERED: SINGULAIR10 MG PO (08:52)
[2020-04-12] MEDS ORDERED: MUCINEX DM ER1 EAC1 PO (08:53)
--- NOTE | 2020-04-12 11:19 | NUR ---
Nutrition Follow-up: POD 10 CABG. Tolerating PO intake. Nursing reports pt ate well this AM. Pt reports that he does not like the food provided. Noted plans to d/c today. Diet: Diabetic PO intake: 33% avg x 3 meals yesterday Wt: 177# (04/12) Last BM: 04/10 per pt Labs noted: Na 135, Glu 131, Ca 7.8, Alb 2.7 Meds noted: Humulin, Florajen, Protonix, Senokot, Colace -Encourage PO intake and honor food preferences within diet restrictions. -Monitor wt. -RD following.
== END 2020-04-12 12:17 | disposition home or self-care (01) | DRG 235 ==
LOC: D.CVICU 10:26
PROVIDERS: Emergency Medicine; Psychiatry & Neurology Neurology; ADMIT Thoracic Surgery (Cardiothoracic Vascular Surgery); ATTEND Thoracic Surgery (Cardiothoracic Vascular Surgery)
PROC: 021109W Bypass Coronary Artery, Two Arteries from Aorta with Autologous Venous Tissue, Open Approach (ICD-10-PCS; 2020-04-02)
PROC: 06BP4ZZ Excision of Right Saphenous Vein, Percutaneous Endoscopic Approach (ICD-10-PCS; 2020-04-02)
PROC: B24BZZ4 Ultrasonography of Heart with Aorta, Transesophageal (ICD-10-PCS; 2020-04-02)
PROC: 5A1221Z Performance of Cardiac Output, Continuous (ICD-10-PCS; 2020-04-02)
PROC: 02100Z9 Bypass Coronary Artery, One Artery from Left Internal Mammary, Open Approach (ICD-10-PCS; principal; 2020-04-02 14:45)
DX: I21.9 Acute myocardial infarction, unspecified (principal); J96.02 Acute respiratory failure with hypercapnia; J96.01 Acute respiratory failure with hypoxia; J18.9 Pneumonia, unspecified organism; K72.00 Acute and subacute hepatic failure without coma; G93.41 Metabolic encephalopathy; I25.810 Atherosclerosis of coronary artery bypass graft(s) without angina pectoris; I47.2 Ventricular tachycardia; F05 Delirium due to known physiological condition; J44.1 Chronic obstructive pulmonary disease with (acute) exacerbation; I13.0 Hypertensive heart and chronic kidney disease with heart failure and stage 1 through stage 4 chronic kidney disease, or unspecified chronic kidney disease; I50.20 Unspecified systolic (congestive) heart failure; E11.9 Type 2 diabetes mellitus without complications; I10 Essential (primary) hypertension; K21.9 Gastro-esophageal reflux disease without esophagitis; M19.90 Unspecified osteoarthritis, unspecified site; E78.5 Hyperlipidemia, unspecified; F17.200 Nicotine dependence, unspecified, uncomplicated; D53.9 Nutritional anemia, unspecified; N18.9 Chronic kidney disease, unspecified; R41.82 Altered mental status, unspecified; E11.22 Type 2 diabetes mellitus with diabetic chronic kidney disease; I65.29 Occlusion and stenosis of unspecified carotid artery

== ENCOUNTER → 2020-05-19 10:36 | Outpatient (CLI) | payer OTHER ==
[2020-04-02 10:08] VITALS: BMI 29.0
[~2020-05-19 10:36] MED LIST: AMIODARONE HCL200 MG PO; AMITRIPTYLINE H50 MG PO; BAYER CHEWABLE81 MG PO; ELAVIL75 MG PO; FENOFIBRATE160 MG PO; FLOMAX0.4 MG PO; GLIPIZIDE10 MG PO; GLUCOPHAGE850 MG PO; IBUPROFEN800 MG PO; LISINOPRIL10 MG PO; LISINOPRIL5 MG PO; MUCINEX DM ER1 EAC1 PO; SINGULAIR10 MG PO; TORADOL10 MG PO
[2020-05-19 11:36] LABS: BASOPHILS 0.4 % (0-2); EOSINOPHILS 4.6 % (0-7); HEMATOCRIT 37.9 % (42.0-54.0); HEMOGLOBIN 11.8 g/dL (13.5-17.5); IMMATURE GRANULOCYTES 1.8 % (0-5); LYMPHOCYTES 23.1 % (15-50); MCH 31.7 pg (26.0-34.0); MCHC 31.1 g/dL (31.0-37.0); MCV 101.9 fL (80.0-100.0); MEAN PLATELET VOLUME 10.1 fL (7.4-10.4); MONOCYTES 5.7 % (2-11); NEUTROPHILS 64.4 % (40-80); PLATELET COUNT 241 10x3/uL (130-400); RBC 3.72 10x6/uL (4.20-6.10); RDW 13.9 % (11.5-14.5); WBC 5.7 10x3/uL (4.8-10.8)
[2020-05-19 11:54] LABS: ANION GAP 11.3 mmol/L (8-16); BILIRUBIN - TOTAL 0.19 mg/dL (0.2-1.3); CALCIUM 8.2 mg/dL (8.5-10.1); CARBON DIOXIDE 24.4 mmol/L (21.0-32.0); CREATININE - SERUM 1.2 mg/dL (0.6-1.3); POTASSIUM - SERUM 3.7 mmol/L (3.5-5.1); PROTEIN - SERUM 7.2 g/dL (6.4-8.2)
== END | disposition home or self-care (01) ==
LOC: D.RAD 10:36
PROVIDERS: ATTEND Thoracic Surgery (Cardiothoracic Vascular Surgery)
DX: Z48.812 Encounter for surgical aftercare following surgery on the circulatory system (principal)